=== PATIENT | female | born 1960 | race Caucasian/White ===

== ENCOUNTER → 2021-09-22 15:53 | Outpatient (CLI) | payer OTHER, SELFPAY ==
--- NOTE | ~2021-09-22 | XR_ITS ---
XR_[id number]_CR DATE: 09/22/2021 16:39 INDICATION: Neck pain TECHNIQUE: AP, open-mouth, lateral and swimmer views COMPARISON: None FINDINGS: Anterior plate and screws are noted from the C5-6 interspace to C7. There is fracture of on e of the 2 proximal plate and screws and both lower plate and screws There is approximate 4 mm AP separation between the lower aspect of the plate and the lower 2 screws. There is straightening of the cervical spine. There is moderate degenerative disc disease at C4-5. IMPRESSION: Fracture of L3 of 4 screws at lower cervical anterior plate Straightening of the cervical spine Moderate degenerative disc disease at C4-5 No bone fracture or dislocation is evident Reviewed, dictated and finalized at [facility]. Reviewed, dictated and finalized at [facility].
== END ==
PROVIDERS: PCP Family Medicine; Visit Provider Family Medicine
DX: M50.321 Other cervical disc degeneration at C4-C5 level (principal); S32.039A Unspecified fracture of third lumbar vertebra, initial encounter for closed fracture; X58.XXXA Exposure to other specified factors, initial encounter
CPT/HCPCS: 72040

== ENCOUNTER 2022-08-25 09:16 | Outpatient (CLI) | payer OTHER, SELFPAY ==
[2022-08-28 07:49] LABS: Kit Draw Collected
== END 2022-08-25 09:17 | disposition home or self-care (01) ==
LOC: ANHGOSHLAB 09:17
PROVIDERS: PCP Family Medicine; Visit Provider Nurse Practitioner
DX: E55.9 Vitamin D deficiency, unspecified (principal); E78.5 Hyperlipidemia, unspecified; I10 Essential (primary) hypertension
CPT/HCPCS: 36415

== ENCOUNTER 2023-06-06 12:29 | Emergency (ER) | payer OTHER, SELFPAY ==
--- NOTE | ~2023-06-06 | XR_ITS ---
EXAMINATION: XR knee RT min 4V, XR knee LT min 4V DATE: 06/06/2023 13:23 INDICATION: Bilateral anterior knee pain post fall onto both knees. TECHNIQUE: 1. Anteroposterior, 2 oblique, sunrise and crosstable lateral views of the left knee were obtained. 2. Anteroposterior, 2 oblique, sunrise and crosstable lateral views of the right knee were obtained COMPARISON: None. FINDINGS: There is bilateral genu valgus with severe joint space narrowing in the lateral compartments of both knees. No fracture. There is additional mild osteoarthritis with moderate size marginal osteophytes i n the medial and patellofemoral compartments of both knees. No joint effusion/layering lipohemarthros is. IMPRESSION: 1. Severe medial compartment predominant tricompartmental osteoarthritis of both knees. No knee joint effusions or acute osseous abnormality. Reviewed, dictated and finalized at [facility]. NG TACKER IMPRESSION: 1. Severe medial compartment predominant tricompartmental osteoarthritis of bot h knees. No knee joint effusions or acute osseous abnormality.
--- NOTE | ~2023-06-06 | XR_ITS ---
XR cervical spine 4-5V DATE: 06/06/2023 13:22 INDICATION: Fall 4 months, with the neck and back. Neck pain. TECHNIQUE: AP, lateral, open-mouth, swimmer views COMPARISON: 09/22/2021 cervical spine FINDINGS: Again noted is fracture of at least 3 of the 4 screws at the anterior C5-7 surgical fusion, unchanged since 09/22/2021. C1 and C2 are normally aligned and the odontoid process is intact. No cervical spine fracture or dislocation or prevertebral soft tissue swelling is evident. There is m ild to moderate degenerative disc disease in the upper and mid cervical spine. Bilateral elongated C7 transverse processes. IMPRESSION: Failed hardware at anterior surgical fusion at C5-C7 No interval fracture or dislocation since 09/22/2021 Reviewed, dictated and finalized at location [facility]. TENNIS BALL COVERER
[2023-06-06 12:40] VITALS: BP 155/69; PULSE 81; RESP 18; TEMP 36.6; O2SAT 100
[2023-06-06 12:44] VITALS: BP 155/69; PULSE 81; RESP 18; TEMP 36.6; O2SAT 100
--- NOTE | 2023-06-06 12:59 | ED.FALL ---
HPI - Fall General Chief Complaint: Fall Stated Complaint: Injuries from fall/shoulder& knees Source: patient Mode of arrival: ambulatory Limitations: no limitations History of Present Illness HPI Narrative: 63-year-old female history cervical spine fusion, hypertension, and bilateral knee osteoarthritis presented for complaints pain in several locations after fall at work today. She states she tripped over a mat under a desk chair, causing her to fall onto her knees. She states she also struck the left chest on the desk causing her to jerk her head backwards. Endorses neck pain, rates 8/10 and is worse on left. She states this is new pain because she tends to have right-sided neck pain. Also reports bilateral knee pain which she rates 9/10, left is worse than the right. Reports decreased ROM to bilateral knees. Left foot/ankle pain rates 4/10. Left shoulder pain rates 5/10. She denies taking any additional pain medicine she takes Celebrex daily. Endorses a history of left meniscus repair and left ankle surgery. Denies any deformities, numbness, tingling, weakness of the extremities. Related Data Home Medications Medication Instructions Recorded Confirmed cetirizine 10 mg tablet (Zyrtec) 10 mg PO DAILY 04/21/19 08/20/22 celecoxib 200 mg capsule 200 mg PO BID 09/15/21 08/20/22 duloxetine 60 mg capsule,delayed 60 mg PO DAILY 08/18/22 08/20/22 release methocarbamol 750 mg tablet 750 mg PO DAILY 08/18/22 08/20/22 Allergies Allergy/AdvReac Type Severity Reaction Status Date / Time amoxicillin Allergy Unknown Unknown Verified 08/18/22 14:25 codeine Allergy Unknown Unknown Verified 08/18/22 14:25 Penicillins Allergy Unknown Unknown Verified 08/18/22 14:25 Sulfa (Sulfonamide Allergy Unknown Unknown Verified 08/18/22 14:25 Antibiotics) tetanus and diphtheria Allergy Unknown Unknown Verified 08/18/22 14:25 toxoids vancomycin Allergy Unknown Unknown Verified 08/18/22 14:25 tramadol Allergy Itching Verified 08/18/22 14:25 potassium AdvReac unkknown Verified 08/18/22 14:25 Review of Systems Review of Systems: CONSTITUTIONAL: Denies body aches, fever, chills EYES: Denies visual changes ENT: Denies rhinorrhea, congestion CARDIOVASCULAR: Denies chest pain, palpitations, or edema. RESPIRATORY: Denies cough or dyspnea. SKIN: Denies rash, itching, or wounds. MUSCULOSKELETAL: Denies back pain, see HPI NEUROLOGIC: Denies headache, numbness, tingling, or weakness. All systems reviewed & are unremarkable except as noted in HPI and below PMFSH Past Medical History Medical History Back pain with history of spinal surgery Essential (primary) hypertension (~1997) Hyperlipidemia, unspecified (~1997) Umbilical hernia Surgical History Surgical History H/O lateral meniscus repair of left knee (~2006) Status post cervical spinal fusion (~2003) Family History Family History Sibling Family history of thyroid disease Hypertension Grandparent Diabetes mellitus Hypertension Mother Hypertension Family history of lung cancer Father Rheumatic aortic disease Social History Social History Smoking status: Never smoker Second hand tobacco smoke exposure: No Alcohol intake: current Alcohol use details: Pt drinks wine/mixed drinks. She states that she drinks occasionally/socially Substance use: never Lack of Transportation: No Lack of Food: Never True Current Housing: I Have Housing Concerned About Future Housing: No Difficulty Paying Gas/Electric Bills: No Difficulty Paying for Meds: No Currently Unemployed: No Education: Associate Degree Difficulty w/ Childcare or Family Care: No Occupation/Education: occupation Additional occupation/education comments: V
== END 2023-06-06 14:38 | disposition home or self-care (01) ==
PROVIDERS: Emergency Provider Nurse Practitioner Family; PCP Family Medicine
DX: M25.562 Pain in left knee (principal); M25.561 Pain in right knee; M25.572 Pain in left ankle and joints of left foot; M54.2 Cervicalgia; I10 Essential (primary) hypertension; E78.5 Hyperlipidemia, unspecified
CPT/HCPCS: 72050; 73564; 99214; G0463

== ENCOUNTER 2023-07-04 13:39 | Outpatient (CLI) | payer OTHER, SELFPAY ==
[2023-07-04 18:29] LABS: Basophils Percent Auto 0.5 % (0.2-1.2); Eosinophils Absolute Auto 0.2 K/mm3 (0-0.3); Eosinophils Percent Auto 2.6 % (0-4.4); Hematocrit 42.5 % (37.0-47.0); Hemoglobin 14.2 g/dL (12.0-15.0); Immature Granulocyte Absolute 0.04 K/mm3 (0.00-0.031); Immature Granulocyte Percent A 0.6 % (0-0.5); Lymphocytes Absolute Auto 2.27 K/mm3 (0.9-3.2); Lymphocytes Percent Auto 34.4 % (18.3-44.2); Mean Corpuscular HGB Conc 33.4 g/dl (32-36); Mean Corpuscular Hemoglobin 31.8 pg (26-34); Mean Corpuscular Volume 95.3 fl (80-100); Mean Platelet Volume 10.4 fl (7.4-10.4); Monocytes Absolute Auto 0.5 K/mm3 (0.1-0.6); Monocytes Percent Auto 7.1 % (2.6-8.5); Neutrophils Absolute Auto 3.6 K/mm3 (1.3-6.7); Neutrophils Percent Auto 54.8 % (45.5-73.1); Platelet Count Result 264 k/mm3 (150-375); Red Blood Count 4.46 M/mm3 (4.2-5.4); Red Cell Distribution Width 12.5 % (11.5-14.5); White Blood Count 6.6 K/mm3 (4.5-10.0)
[2023-07-04 18:32] LABS: Alanine Aminotransferase 23 U/L (6-35); Albumin Level 3.9 g/dL (3.5-5.1); Alkaline Phosphatase 81 U/L (38-126); Anion Gap 2 mmol/L (8-16); Aspartate Amino Transferase 51 U/L (14-36); Bilirubin,Total 1.5 mg/dL (0.2-1.3); Blood Urea Nitrogen 12 mg/dL (7-17); Calcium 9.7 mg/dL (8.4-10.2); Carbon Dioxide 31 mmol/L (22-30); Chloride 104 mmol/L (98-107); Cholesterol 191 mg/dL (0-200); Estimated Glomerular Filt Rate > 60; Glucose 85 mg/dL (65-110); HDL Direct 56 mg/dL; Sodium 137 mmol/L (137-145); Triglycerides 116 mg/dL (<150)
[2023-07-04 18:45] LABS: LDL Cholesterol Direct 98 mg/dL
[2023-07-04 19:28] LABS: Vitamin D 25 Hydroxy 49.6 ng/mL
== END 2023-07-04 13:40 | disposition home or self-care (01) ==
LOC: ANHGOSHLAB 13:41
PROVIDERS: PCP Family Medicine; Visit Provider Nurse Practitioner Family
DX: R73.03 Prediabetes (principal); Z00.00 Encounter for general adult medical examination without abnormal findings; E78.5 Hyperlipidemia, unspecified; Z13.29 Encounter for screening for other suspected endocrine disorder; E55.9 Vitamin D deficiency, unspecified
CPT/HCPCS: 36415; 80053; 80061; 82306; 83036; 84443; 85025

== ENCOUNTER 2024-06-24 12:39 | Outpatient (CLI) | payer OTHER, SELFPAY ==
--- OUTSIDE RECORDS SUMMARY | 2024-06-24 12:44 | XMS_ITS | Patient Health Summary ---
Author Organization [facility] Address [address] [place] [address] Care Team Providers Care C Architect Name Role Phone Keturah Norwood MD Primary Care Provider Fernando Scherer DO Unavailable [phone] Ron Escamilla MD Unavailable [phone] Note from [facility],non-owned Affiliates and Associated Physician Practices is amultiple site organization consisting of ambulatory clinics and hospital sitesin [place], [place], [place] and [place]. This disclosure is being madepursuant to the Care Everywhere program and may not contain all information available regarding this patient. Last updated 18.[facility] Allergies * Adhesive Sensitivity(Skin Reactions) * Erythromycin(Itching) * Hydrocodone(Nausea and/or Vomiting) -Low Criticality * Penicillins(Unknown) * Sulfa Drugs(Urticaria) -Medium Criticality * Tramadol(Itching) -Low Criticality * Vancomycin(Itching) Medications * Be aware that medications may not be up to date on this document. Alwaysverify current medications with the patient. * cetirizine (ZyrTEC) 10 MG tablet Take 1 (one) tablet by mouth once daily * atorvastatin (Lipitor) 40 MG tablet(Started 06/29/2023) Take 1 (one) tablet by mouth once daily * DULoxetine (Cymbalta) 60 MG capsule(Started 06/21/2023) Take 1 (one) capsule by mouth once daily * methocarbamol (Robaxin) 750 MG tablet(Started 02/09/2023) Take 1 (one) tablet by mouth 3 times daily 5 refills remaining * Cholecalciferol (Vitamin D) 50 MCG (1999 UT) capsule Take 1 (one) capsule by mouth once daily * Povidone, PF, (iVIZIA Dry Eyes) 0.5 % SOLN by Ophthalmic route as needed Dry eyes * multivitamin daily tablet Take 1 (one) tablet by mouth daily with food * aspirin EC (Ecotrin) 81 MG tablet(Started 08/02/2023) Take 1 (one) tablet by mouth 2 times daily for 42 days Take for blood clot prevention for 6 weeks * acetaminophen (Tylenol) 500 MG capsule(Started 01/03/2024) Take 2 (two) capsules by mouth 3 times daily Take 3x/day for 10 days, then as needed for pain * lisinopril (Prinivil; Zestril) 10 MG tablet(Started 01/04/2024) Take 1 (one) tablet by mouth once daily Take only if BP is greater than 125/90 * aspirin EC (Ecotrin) 81 MG tablet(Started 01/04/2024) TAKE 1 (ONE) TABLET BY MOUTH 2 TIMES DAILY FOR 42 DAYS. TAKE FOR BLOOD CLOT PREVENTION FOR 6 WEEKS * omeprazole (PriLOSEC) 20 MG capsule(Started 01/04/2024) TAKE 1 (ONE) CAPSULE BY MOUTH ONCE DAILY FOR 42 DAYS * oxyCODONE, immediate release, (Roxicodone) 10 MG tablet(Started 02/14/2024) Take 0.5 (one-half) tablet to 1 (one) tablet by mouth every 4 hours as needed for Pain (pain) * celecoxib (CeleBREX) 200 MG capsule(Started 06/10/2024) Take 1 capsule by mouth twice daily Ended Medications* celecoxib (CeleBREX) 200 MG capsule(Started 05/08/2024) (Discontinued) Take 1 capsule by mouth twice daily Active Problems Problem Noted Date Diagnosed Date Primary osteoarthritis of both knees 03/17/2020 Essential hypertension 01/20/2020 Mixed hyperlipidemia 01/20/2020 Social History Tobacco Use Types Packs/Day Years Used Date Smoking Tobacco: Never Smokeless Tobacco: Never Tobacco Cessation:Counseling Given: Not Answered Alcohol Use Standard Drinks/Week Comments Yes 0 (1 standard drink = 0.6 oz pur e alcohol) rarely OASIS D0700: Social Isolation Answer Da te Recorded Frequency of experiencing loneliness or isolatio n Never 08/21/2023 OASIS A1250: Transportation Answer Date Recorded Lack of Transportation (Medical) No 08/21/2023 Lack of Transportation (Non-Medical) No 08/21/2023 Patient Unable or Declines to Respond No 08/21/2023 OASIS B1300: Health Literacy Answer Kaiden e Recorded Frequency of needing help to read materials from doctor or pharmacy Never 08/21/2023 AUDIT-C Answer Date Recorded Q1: How often do you have a drink containing alc ohol? Monthly or less 08/02/2023 Q2: How many drinks containi ng alcohol do you have on a typical day when you are drinking? 1 or 2 08/02/2023 Q3: How often do you have si x or more drinks on one occasion? Never 08/02/2023 PHQ-2 Answer Date Recorded Patient Health Questionnaire-2 Score 0 05/08/2024 Hunger Vital Sign Answer Date Recorded Within the past 12 months, y ou worried that your food would run out before you got the money to buy more. Never true 08/02/19 24 Within the past 12 months, t he food you bought just didn't last and you didn't have money to get more. Never true 08/02/2023 Sex and Gender Information Value Date Recorded Sex Assigned at Not on file Gender Identity Not on file Sexual Orientation Not on file Last Filed Vital Signs Vital Sign Reading Time Taken Comments Blood Pressure 116/67 01/04/2024 4:23 PM CDT Pulse 72 01/04/2024 4:23 PM CDT Temperature 36.8 ??C (98.2 ??F) 01/04/2024 8:28 AM CD T Respiratory Rate 18 01/04/2024 4:23 PM CDT Oxygen Saturation 98% 01/04/2024 4:23 PM CDT Inhaled Oxygen Concentration - - Weight 124.7 kg (275 lb) 01/03/2024 6:41 AM CDT Height 160 cm (5' 3 ) 01/03/2024 6:41 AM CDT Body Mass Index 48.71 01/03/2024 6:41 AM CDT Medical Devices Implanted Type Area Sound Installation Worker Device Identifier Shelf Expiration Date Model / Serial / Lot Cmnt Bone Plc R 40gm Grn Implanted:Qty: 1 on 08/02/2023 by Alonso Pizano MD at [facility] Left: Knee [employer] 12/18/2025 [id number] / / [id number] Tray Tib 75mm Kn Cocr I Beam Implanted:Qty: 1 on 08/02/2023 by Alonso Pizano MD at [facility] Left: Knee [employer] 04/30/2033 [id number] / / [id number] Cmpnt Fem Kn Lt Cr Cmnt Prm Vngrd Intlk Implanted:Qty: 1 on 08/02/2023 by Alonso Pizano MD at [facility] Left: Knee [employer] 06/14/2032 [id number] / / [id number] Cmpnt Ptlr Std 28mm 3 Pg Kn Ser A Implanted:Qty: 1 on 08/02/2023 by Alonso Pizano MD at [facility] Left: Knee [employer] 01/12/2028 [id number] / / [id number] Brng 40lep24nl Vngrd Arcm Kn Ant Stab Implanted:Qty: 1 on 08/02/2023 by Alonso Pizano MD at [facility] Left: Knee [employer] 08/18/2027 [id number] / / [id number] Laureano Brng [id number] Vngrd Arcm Kn Ant Stab Implanted:Qty: 1 on 01/03/2024 by Alonso Pizano MD at [facility] Right: Knee [employer] 07/03/2027 [id number] [facility] ONLY / / [id number] Cmnt Bone Plc R 40gm Grn Implanted:Qty: 1 on 01/03/2024 by Alonso Pizano MD at [facility] Right: Knee [employer] 05/20/2026 [id number] / / [id number] Cmpnt Ptlr Std 28mm 3 Pg Kn Ser A Implanted:Qty: 1 on 01/03/2024 by Alonso Pizano MD at [facility] Right: Knee [employer] 08/14/2028 [id number] / / [id number] Tray Tib 75mm Kn Cocr I Beam Implanted:Qty: 1 on 01/03/2024 by Alonso Pizano MD at [facility] Right: Knee [employer] [id number] / / [id number] Cmpnt Fem Kn Rt Cr Cmnt Prm Vngrd Intlk Implanted:Qty: 1 on 01/03/2024 by Alonso Pizano MD at [facility] Right: Knee [employer] 07/29/2033 [id number] / / [id number] Procedures * XR KNEE RIGHT 3VW(Performed 02/14/2024) Performed for Aftercare following right knee joint replacement surgery * NEURAXIAL BLOCK(Performed 01/03/2024) * OR TOTAL KNEE REPLACEMENT(Performed 01/03/2024) * EKG 12-LEAD(Performed 11/30/2023) Performed for Preop testing * COMPREHENSIVE METABOLIC PANEL(Performed 11/30/2023) Performed for Preop testing * CBC W AUTO DIFFERENTIAL(Performed 11/30/2023) Performed for Preop testing * XR KNEE LEFT 3VW(Performed 09/13/2023) Performed for Aftercare following left knee joint replacement surgery * NEURAXIAL BLOCK(Performed 08/02/2023) * OR TOTAL KNEE REPLACEMENT(Performed 08/02/2023) * ECHO COMPLETE W CONTRAST(Performed 07/13/2023) Performed for Preop cardiovascular exam, Essential hypertension, Mixed hyperlipidemia, Primary osteoarthritis of both knees * COMPREHENSIVE METABOLIC PANEL(Performed 07/04/2023) Performed for Preop examination * CBC W AUTO DIFFERENTIAL(Performed 07/04/2023) Performed for Preop examination * EKG 12-LEAD(Performed 07/04/2023) Performed for Preop examination * XR KNEE BILAT 3VW(Performed 03/16/2023) Performed for Primary osteoarthritis of both knees * XR KNEE BILAT 3VW(Performed 03/16/2020) Performed for Pain in both knees, unspecified chronicity Results * XR Knee Right 3Vw (02/14/2024 3:01 PM CDT) Narrative [facility] [address] - 02/14/2024 3:01 PM CDT Please see progress note in Epic for results. Alonso Pizano MD DIAGNOSTIC IMAGING O RDERABLES [facility] [address] * Neuraxial Block (01/03/2024 9:14 AM CDT) Narrative Miguel Beasley, VICTOR HUGO-CAPTAIN/AIRLINE PILOT - 01/03/2024 9:14 AM CDT Miguel Beasley, HUMAN CAPITAL ANALYST-CAPTAIN/AIRLINE PILOT ? 01/03/2024 ??9:16 AM Neuraxial Block Note ?? Pre-Procedure: ?? Procedure Name: ??Neuraxial Block Patient Location: ??OR Indications: ??surgical anesthesia Pre-Anesthetic Checklist: ??Patient identified, IV Checked, Risks and benefits discussed, Surgical consent verified, Monitors and equipment, Site examined, Pre-op evaluation done, Informed consent obtained, Questions answered/anesthesia questions answered and Allergies reviewed Anticoagulation/ Anti-thrombosis status confirmed? ??Yes Supplemental O2: ??room air Monitors: ??BP and continuous pluse ox Patient Condition: ??sedated, meaningful contact maintained throughout procedure Patient Sedated? ??Nursing sedation administration ? Sedation Type: ??mild ? Sedation Agents (manual): ??versed ?? fentanyl mL Procedure: ?? Block Type: ??Spinal Prep: ??Betadine Sterile Field: ??mask, cap/hat, sterile established and sterile gloves Approach: ??midline Skin was localized? ??Nursing documentation on [facility] Skin localized with: ??Lidocaine 1% and 1 mL Spinal Block: ?? Needle Type: ??spinal needle Needle Gauge: ??22 Needle Length: ??127 mm Placement Site: ??L3-4 Number of Attempts: ??1 CSF: ??free flow, aspiration before injection Local anesthetics used? ??Nursing documentation on the [facility] Spinal Local Anesthetic: ? Bupivacaine: ??0.75% in dextrose 2 ??mL Degree of difficulty: ??none Procedure Tolerance: ??tolerated well ?? performed while the patient was sedated Sensory Level: ??lower level Motor Blockade: ??Yes Position post procedure: ??supine Vital Signs: ??Vital signs monitored and stable throughout. ??See anesthesia record for details. Start Time: ??01/03/2024 8:30 AM End Time: ??01/03/2024 8:41 AM Total Time: ??11 Staff: ?? Anesthesia Provider: ??Miguel Beasley, HUMAN CAPITAL ANALYST-CAPTAIN/AIRLINE PILOT ?? - ?? performed the procedure Provider #1: ??Alannah Zee Rashida Cervantes MD GENERAL ANESTHESI A ORDERABLES * EKG 12-LEAD (11/30/2023 9:19 AM CDT) Only the most recent of2 resultswithin the time period is included. Ventricular Rate 62 BPM [facility] Atrial Rate 62 BPM [facility] P-R Interval 178 ms [facility] QRS Duration ms 72 ms [facility] Q-T Interval ms 382 ms [facility] QTC Calculation (Bezet) 387 ms [facility] Calculated P Mission 41 degrees [facility] Calculated R Mission 3 degrees [facility] Calculated T Mission 27 degrees [facility] Interpretation EKG Normal sinus rhythm Normal ECG When compared with ECG of 04-JUL-2023 08:39, No significant change was found Confirmed by JOLENE EDMOND, DANISH CARPENTER ([id number]) on 11/30/2023 12:11:46 PM [facility] 11/30/2023 9:19 AM CDT 11/30/2023 12:11 PM CDT Socorro Ricci DO ECG ORDERABLES [facility] * CBC W AUTO DIFFERENTIAL (11/30/2023 8:59 AM CDT) Only the most recent of2 resultswithin the time period is included. WBC 4.5 4.0 - 10.7 x10E9/L 11/30/2023 9:11 AM CDT [facility] RBC Count 4.68 3.90 - 5.20 x10E12/L 11/30/2023 9:11 AM CDT [facility] Hemoglobin 14.6 11.9 - 15.8 g/dL 11/30/2023 9:11 AM CDT [facility] Hematocrit 43.0 34.8 - 46.1 % 11/30/2023 9:11 AM CDT [facility] MCV 91.9 80.0 - 98.0 fL 11/30/2023 9:11 AM CDT [facility] MCH 31.2 26.7 - 33.6 pg 11/30/2023 9:11 AM CDT [facility] MCHC 34.0 31.7 - 36.3 g/dL 11/30/2023 9:11 AM CDT [facility] RDW-CV 12.9 11.3 - 14.8 % 11/30/2023 9:11 AM CDT [facility] Platelet Count 262 150 - 420 x10E9/L 11/30/2023 9:11 AM CDT [facility] MPV 9.3 7.8 - 11.4 fL 11/30/2023 9:11 AM CDT [facility] Neutrophil % 51.1 41.0 - 74.0 % 11/30/2023 9:11 AM CDT [facility] Lymphocyte % 36.0 17.0 - 47.0 % 11/30/2023 9:11 AM CDT [facility] Monocyte % 8.7 3.0 - 11.0 % 11/30/2023 9:11 AM CDT [facility] Eosinophil % 3.1 0.0 - 7.0 % 11/30/2023 9:11 AM CDT [facility] Basophil % 0.7 0.0 - 1.6 % 11/30/2023 9:11 AM CDT [facility] Immature Granulocytes % 0.4 0.0 - 1.0 % 11/30/2023 9:11 AM CDT [facility] Neutrophil Absolute 2.28 1.60 - 7.50 x10E9/L 11/30/2023 9:11 AM CDT [facility] Lymphocyte Absolute 1.61 1.00 - 4.40 x10E9/L 11/30/2023 9:11 AM CDT [facility] Monocyte Absolute 0.39 0.15 - 1.00 x10E9/L 11/30/2023 9:11 AM CDT [facility] Eosinophil Absolute 0.14 0.00 - 0.60 x10E9/L 11/30/2023 9:11 AM CDT [facility] Basophil Absolute 0.03 0.00 - 0.13 x10E9/L 11/30/2023 9:11 AM CDT [facility] Blood BLOOD SPECIMEN / Unknown Venipuncture / Unknown 11/30/2023 8:59 AM CDT 11/30/2023 9:06 AM CDT Socorro Ricci DO LAB - HEMATOLOGY ORD ERABLES [facility] [address] [place] [address] * (ABNORMAL) COMPREHENSIVE METABOLIC PANEL (11/30/2023 8:59 AM CDT) Only the most recent of2 resultswithin the time period is included. Pathologist [facility] Glucose 101 70 - 105 mg/dL 11/30/2023 9:33 AM CDT [facility] Sodium 140 136 - 145 mmol/L 11/30/2023 9:33 AM CDT [facility] Potassium 5.1 3.5 - 5.1 mmol/L 11/30/2023 9:33 AM CDT [facility] Chloride 104 98 - 107 mmol/L 11/30/2023 9:33 AM CDT [facility] CO2 30(H) 22 - 29 mmol/L 11/30/2023 9:33 AM CDT [facility] Calcium 10.2 8.4 - 10.4 mg/dL 11/30/2023 9:33 AM CDT [facility] Anion Gap 6 6 - 16 mmol/L 11/30/2023 9:33 AM CDT [facility] BUN 19 7 - 26 mg/dL 11/30/2023 9:33 AM CDT [facility] Creatinine 0.89 0.57 - 1.11 mg/dL 11/30/2023 9:33 AM CDT [facility] Alkaline Phosphatase 88 40 - 150 U/L 11/30/2023 9:33 AM CDT [facility] ALT 17 0 - 55 U/L 11/30/2023 9:33 AM CDT [facility] AST 26 5 - 34 U/L 11/30/2023 9:33 AM CDT [facility] Protein Total 7.0 6.4 - 8.3 gm/dL 11/30/2023 9:33 AM CDT [facility] Albumin 3.8 3.4 - 5.0 gm/dL 11/30/2023 9:33 AM CDT [facility] Bilirubin Total 2.5(H) 0.2 - 1.2 mg/dL 11/30/2023 9:33 AM CDT [facility] eGFR by CKD-EPI 73(L) >=90 mL/min/1.7 3 m2 11/30/2023 9:33 AM CDT [facility] Blood BLOOD SPECIMEN / Unknown Venipuncture / Unknown 11/30/2023 8:59 AM CDT 11/30/2023 9:06 AM CDT Socorro Ricci DO LAB - CHEMISTRY TIESHA NUNES Performing Organization Address [facility]/ZIP Co de Phone Number [facility] [address] [place] [address] * XR KNEE LEFT 3VW (09/13/2023 4:19 PM CDT) Narrative [facility] [address] - 09/13/2023 4:19 PM CDT Please see progress note in Epic for results. Alonso Pizano MD DIAGNOSTIC IMAGING O RDERABLES Performing Organization Address [facility] Co de Phone Number [facility] [address] * Neuraxial Block (08/02/2023 10:08 AM CDT) Narrative Miguel Beasley APRN-CAPTAIN/AIRLINE PILOT - 08/02/2023 10:08 AM CDT Miguel Beasley APRN-CRNA ? 08/02/2023 10:09 AM Neuraxial Block Note ?? Pre-Procedure: ?? Procedure Name: ??Neuraxial Block Patient Location: ??OR Indications: ??surgical anesthesia Pre-Anesthetic Checklist: ??Patient identified, IV Checked, Risks and benefits discussed, Surgical consent verified, Monitors and equipment, Site examined, Pre-op evaluation done, Informed consent obtained, Questions answered/anesthesia questions answered and Allergies reviewed Anticoagulation/ Anti-thrombosis status confirmed? ??Yes Supplemental O2: ??room air Monitors: ??BP and continuous pluse ox Patient Condition: ??sedated, meaningful contact maintained throughout procedure Patient Sedated? ??Nursing sedation administration ? Sedation Type: ??mild ? Sedation Agents (manual): ??versed ?? fentanyl mL Procedure: ?? Block Type: ??Spinal Prep: ??Betadine Sterile Field: ??mask, cap/hat, sterile established and sterile gloves Approach: ??midline Skin was localized? ??Nursing documentation on [facility] Skin localized with: ??Lidocaine 1% and 1 mL Spinal Block: ?? Needle Type: ??spinal needle Needle Gauge: ??22 Needle Length: ??127 mm Placement Site: ??L3-4 Number of Attempts: ??2 CSF: ??free flow, aspiration before injection Local anesthetics used? ??Nursing documentation on the MAR Spinal Local Anesthetic: ? Bupivacaine: ??0.75% in dextrose 2 ??mL Degree of difficulty: ??moderate Procedure Tolerance: ??tolerated well ?? performed while the patient was sedated Sensory Level: ??lower level Motor Blockade: ??Yes Position post procedure: ??supine Vital Signs: ??Vital signs monitored and stable throughout. ??See anesthesia record for details. Start Time: ??08/02/2023 9:40 AM End Time: ??08/02/2023 9:50 AM Total Time: ??10 Staff: ?? Anesthesia Provider: ??Miguel Beasley, VICTOR HUGO-CAPTAIN/AIRLINE PILOT ?? - ?? performed the procedure Tristen Rubin MD GENERAL ANESTHESIA O RDERABLES * ECHO COMPLETE W CONTRAST (07/13/2023 11:16 AM SHOWER SCREEN INSTALLER) BSA 2.2067502 [id number] m2 SSM CV FUJI PACS LVOT stroke vol 79.06 mL SSM CV FUJI PACS LVOT stroke vol index 33.72 mL/m2 SSM CV FUJI PACS LVOT diam 1.8 cm SSM CV FUJ I PACS LVOT area 2.55 cm2 SSM CV FUJ I PACS MV E pk jaci 96.099 cm/s SSM CV F UJI PACS MV avg E/e' ratio 9.74 SS M CV FUJI PACS MV A pk jaci 101.114 cm/s SSM CV F UJI PACS MV E A ratio 0.95 SSM CV FUJI PACS MV E' lateral jaci 12.21 cm/s SS M CV FUJI PACS MV DT 240 ms SSM CV FUJ I PACS MV E' septal jaci 8.281 cm/s SSM CV FUJI PACS MV E/e' septal 11.605 SSM C V FUJI PACS MV E/e' lateral 7.87 SSM CV FUJI PACS TR pk jaci 257.5 cm/s SSM CV FUJ I PACS LVOT pk jaci 1.48 m/s SSM CV F UJI PACS LVOT mn jaci 0.97 m/s SSM CV F UJI PACS LVOT mn grad 4.2 mmHg SSM CV FUJI PACS LVOT Cardiac Output 5.565 l/min SSM CV FUJI PACS LVOT Cardiac Index 2.37 l/min/m2 SSM CV FUJI PACS LA vol BP A-L 75.214 mL SSM CV FUJI PACS TV S' jaci 17.156 cm/s SSM CV FUJ I PACS TAPSE 2.726 1.7 cm SSM CV FUJ I PACS AV mn grad 10 mmHg SSM CV FU JI PACS AV pk grad 19 mmHg SSM CV FU JI PACS AV mn jaci 1.48 m/s SSM CV FUJ I PACS AV pk jaci 2.16 m/s SSM CV FUJ I PACS AV VTI 47.286 cm SSM CV FUJ I PACS LVOT pk grad 8.757 mmHg SSM CV FUJI PACS LVOT VTI 30.976 cm SSM CV FUJ I PACS AV area cont VTI 1.7 cm2 SSM CV FUJI PACS AV area pk jaci 1.7 cm2 SSM C V FUJI PACS AV Doppler jaci index pk jaci 0.684 SSM CV FUJI PACS Dimensionless Index 0.655 SSM CV FUJI PACS MV decel slope 399.987 cm/s2 SSM C V FUJI PACS sPAP 29.5 mmHg SSM CV FUJ I PACS RVSP 29.5 mmHg SSM CV FUJ I PACS RAP 3.0 mmHg SSM CV FUJ I PACS TR pk grad 27 mmHg SSM CV FU JI PACS PV pk jaci 112.671 cm/s SSM CV FUJ I PACS PV pk grad 5 mmHg SSM CV FU JI PACS IVC size 1.5 cm SSM CV FUJ I PACS LA ESV A4C MOD Index 32 ml/m2 SSM CV FUJI PACS LA ESV A2C MOD Index 28 ml/m2 SSM CV FUJI PACS Anatomical Region Laterality Modality Ultrasound Narrative 07/14/2023 10:15 AM SHOWER SCREEN INSTALLER ?Left??Ventricle: Left ventricle size is normal. Normal wall thickness. Normal systolic function with a visually estimated EF of 55 - 60%. Normal wall motion. Grade I diastolic dysfunction with normal left atrial pressure. Left Ventricle Left ventricle size is normal. Normal wall thickness. Normal systolic function with a visually estimated EF of 55 - 60%. Normal wall motion. Grade I diastolic dysfunction with normal left atrial pressure. Right Ventricle Right ventricle size is normal. Normal systolic function. Left Atrium Left atrium size is normal. Right Atrium Right atrium size is normal. IVC/SVC IVC diameter is less than or equal to 21 mm and decreases greater than 50% during inspiration; therefore the estimated right atrial pressure is normal (~3 mmHg). Mitral Valve Valve structure is normal. No restricted motion. Trace regurgitation. No stenosis. Tricuspid Valve Valve structure is normal. No restricted motion. Trace regurgitation. No stenosis. Aortic Valve Valve structure is trileaflet. No restricted motion. No regurgitation. No stenosis. Pulmonic Valve Valve structure is normal. No restricted motion. No regurgitation. No stenosis. Ascending Aorta Normal sized sinus of Valsalva (aortic root) and ascending aorta. Pericardium No pericardial effusion. Study Details Study quality was adequate. A complete 2D, color Doppler, spectral Doppler and M-mode echocardiogram was performed. The apical, parasternal, subcostal and suprasternal views were obtained. Definity ultrasound enhancing agent used. Procedure Note Ron Escamilla MD - 07/14/2023 ? ? Left??Ventricle: Left ventricle size is normal. Normal wall thickness.Normal systolic function with a visually estimated EF of 55 - 60%. Normalwall motion. Grade I diastolic dysfunction with normal left atrialpressure. Ron Escamilla MD ECHO CUPID * XR KNEE BILAT 3VW (03/16/2023 12:08 PM CDT) Only the most recent of2 resultswithin the time period is included. Narrative [facility] [address] - 03/16/2023 12:08 PM CDT Please see progress note in Epic for results. Alonso Pizano MD DIAGNOSTIC IMAGING O RDERABLES [facility] [address] Care Teams C Architect Relationship Specialty Start Date End Date Keturah Norwood MD [address] [place] [address] PCP - General Family Medicine 07/04/23 Fernando Scherer DO [address] [place] [address] Cardiovascular Disease 07/04/23 [place] [address] [facility] [place] [address] Par[employer] Plant Sweater Operator Cardiovascular Disease 07/24/23
--- OUTSIDE RECORDS SUMMARY | 2024-06-24 12:44 | XMS_ITS | Referral Summary ---
Author Organization [facility] Address [address] [facility] [place] [address] Care Team Providers Care Federal Law Clerk Name Role Phone Keturah Norwood MD Primary Care Provider Fernando Scherer DO Unavailable [phone] Ron Escamilla MD Unavailable [phone] Source Comments [facility],non-owned Affiliates and Associated Physician Practices is amultiple site organization consisting of ambulatory clinics and hospital sitesin [place], [place], [place] and [place]. This disclosure is being madepursuant to the Care Everywhere program and may not contain all information available regarding this patient. Last updated 18.[facility] Encounters Date Type Department Care Team Description 06/10/2024 Refill [facility] [address] [place] [address], [address] [address] Alonso Pizano MD Refill Request 05/09/2024 9:20 AM RAISE DRILLER Office Visit [facility] [address] [place] [phone] Alonso Pizano MD Presence of right artificial knee joint (Primary Dx) 05/08/[address] [address] Alonso Pizano MD Refill Request from Last 3 Months Allergies Active Allergy Reactions Criticality Noted Date Comments Adhesive Sensitivity Skin Reactions 11/30/2023 EKG leads Erythromycin Itching 04/09/2018 Hydrocodone Nausea and/or Vomiting Low 01/17/2022 Penicillins Unknown 04/09/2018 childhood Sulfa Drugs Urticaria Medium 04/09/2018 Tramadol Itching Low 01/17/2022 Vancomycin Itching 04/09/2018 Medications * Be aware that medications may not be up to date on this document. Alwaysverify current medications with the patient. Medication Sig Dispensed Refills Start Date End Date Status cetirizine (ZyrTEC) 10 MG tablet Take 1 (one) tablet by mouth once daily Active atorvastatin (Lipitor) 40 MG tablet Take 1 (one) tablet by mouth once daily 06/29/2023 Active DULoxetine (Cymbalta) 60 MG capsule Take 1 (one) capsule by mouth once daily 06/21/2023 Active methocarbamol (Robaxin) 750 MG tablet Take 1 (one) tablet by mouth 3 times daily 90 tablet 5 02/09/2023 Active Cholecalciferol (Vitamin D) 50 MCG (1999 UT) capsule Take 1 (one) capsule by mouth once daily Active Povidone, PF, (iVIZIA Dry Eyes) 0.5 % SOLN by Ophthalmic route as needed Dry eyes Active multivitamin daily tablet Take 1 (one) tablet by mouth daily with food Active aspirin EC (Ecotrin) 81 MG tabletIndication s:Post Op DVT prevention Take 1 (one) tablet by mouth 2 times daily for 42 days Take for blood clot prevention for 6 weeks 84 tablet 08/02/2023 Active acetaminophen (Tylenol) 500 MG capsule Take 2 (two) capsules by mouth 3 times daily Take 3x/day for 10 days, then as needed for pain 01/03/2024 Active lisinopril (Prinivil; Zestril) 10 MG tablet Take 1 (one) tablet by mouth once daily Take only if BP is greater than 125/90 01/04/2024 Active aspirin EC (Ecotrin) 81 MG tablet TAKE 1 (ONE) TABLET BY MOUTH 2 TIMES DAILY FOR 42 DAYS. TAKE FOR BLOOD CLOT PREVENTION FOR 6 WEEKS 84 tablet 01/04/2024 5 Active omeprazole (PriLOSEC) 20 MG capsule TAKE 1 (ONE) CAPSULE BY MOUTH ONCE DAILY FOR 42 DAYS 42 capsule 01/04/2024 5 Active oxyCODONE, immediate release, (Roxicodone) 10 MG tabletIndication s:Postoperative pain Take 0.5 (one-half) tablet to 1 (one) tablet by mouth every 4 hours as needed for Pain (pain) 30 tablet 02/14/2024 Active celecoxib (CeleBREX) 200 MG capsule Take 1 capsule by mouth twice daily 60 capsule 06/10/2024 Active celecoxib (CeleBREX) 200 MG capsule Take 1 capsule by mouth twice daily 60 capsule 05/08/2024 5 Discontinued Active Problems Problem Noted Date Diagnosed Date Primary osteoarthritis of both knees 03/17/2020 Essential hypertension 01/20/2020 Overview (03/17/2020): Last Assessment & Plan: Continue present medical care and treatment Mixed hyperlipidemia 01/20/2020 Overview (03/17/2020): Last Assessment & Plan: Continue present medical care and treatment Social History Tobacco Use Types Packs/Day Years [...] Mass Index 48.71 01/03/2024 6:41 AM CDT Functional Status Functional Status Response Date of Assess ment Is person deaf or have serious hearing difficult y? No 08/02/2023 Is person blind or have serious difficulty seein g? No 08/02/2023 Does person have serious dif ficulty walking/climbing stairs? Yes 08/02/2023 Does person have difficulty dressing/bathing? Ye s 08/02/2023 Does person have difficulty doing errands alone? Yes 08/02/2023 Cognitive Status Response Date of Assessm ent Does person have difficulty concentrating/remembering/making decisions? No 08/02/2023 Plan of Treatment Upcoming Encounters Date Type Department Care Team (Late st Contact Info) Description 11/28/2024 11:00 AM CDT Office Visit [facility] [address] [place] [address] [address] [place] [address] Ron Escamilla MD [address] [place] [phone] Medical Devices Implanted Type Area Well Digger Device Identifier Shelf Expiration Date Model / Serial / Lot Cmnt Bone Plc R 40gm Grn Implanted:Qty: 1 on 08/02/2023 by Alonso Pizano MD at [facility] Left: Knee [employer] 12/18/2025 [id number] / / [id number] Tray Tib 75mm Kn Cocr I Beam Implanted:Qty: 1 on 08/02/2023 by Alonso Pizano MD at [facility] Left: Knee [employer] 04/30/2033 [id number] / / [id number] Cmpnt Fem Kn Lt Cr Cmnt Prm Vngrd Intlk Implanted:Qty: 1 on 08/02/2023 by Alonso Pizano MD at [facility] Left: Knee [employer] 06/14/2032 [id number] / / [id number] Cmpnt Ptlr Std 28mm 3 Pg Kn Ser A Implanted:Qty: 1 on 08/02/2023 by Alonso Pizano MD at [facility] Left: Knee [employer] 01/12/2028 [id number] / / [id number] Brng [id number] Vngrd Arcm Kn Ant Stab Implanted:Qty: 1 on 08/02/2023 by Alonso Pizano MD at [facility] Left: Knee [employer] 08/18/2027 [id number] / / [id number] Laureano Brng [id number] Vngrd Arcm Kn Ant Stab Implanted:Qty: 1 on 01/03/2024 by Alonso Pizano MD at [facility] Right: Knee [employer] 07/03/2027 [id number] [facility] / / [id number] Cmnt Bone Plc R 40gm Grn Implanted:Qty: 1 on 01/03/2024 by Alonso Pizano MD at [facility] Right: Knee [employer] 05/20/2026 [id number] / / [id number] Cmpnt Ptlr Std 28mm 3 Pg Kn Ser A Implanted:Qty: 1 on 01/03/2024 by Alonso Pizano MD at [facility] Right: Knee [employer] 08/14/2028 [id number] / / [id number] Tray Tib 75mm Kn Cocr I Beam Implanted:Qty: 1 on 01/03/2024 by Alonso Pizano MD at [facility] Right: Knee [employer] [id number] / / [id number] Cmpnt Fem Kn Rt Cr Cmnt Prm Vngrd Intlk Implanted:Qty: 1 on 01/03/2024 by Alonso Pizano MD at [facility] Right: Knee [employer] 07/29/2033 [id number] / / [id number] Procedures Procedure Name Priority Date/Time Associated Diagnosis Comments COMPREHENSIVE METABOLIC PANEL STAT 11/30/2023 8:59 AM CDT Preop testing from Last 3 Months or Most Recently Relevant to Health Maintenance Results * (ABNORMAL) COMPREHENSIVE METABOLIC PANEL (11/30/2023 8:59 AM CDT) Glucose 101 70 - 105 mg/dL 11/30/2023 9:33 AM CDT [facility] Sodium 140 136 - 145 mmol/L 11/30/2023 9:33 AM CDT [facility] Potassium 5.1 3.5 - 5.1 mmol/L 11/30/2023 9:33 AM CDT [facility] Chloride 104 98 - 107 mmol/L 11/30/2023 9:33 AM CDT [facility] CO2 30(H) 22 - 29 mmol/L 11/30/2023 9:33 AM CDT [facility] Calcium 10.2 8.4 - 10.4 mg/dL 11/30/2023 9:33 AM CDT [facility] Anion Gap 6 6 - 16 mmol/L 11/30/2023 9:33 AM CDT [facility] BUN 19 7 - 26 mg/dL 11/30/2023 9:33 AM CDT [facility] Creatinine 0.89 0.57 - 1.11 mg/dL 11/30/2023 9:33 AM CDT [facility] Alkaline Phosphatase 88 40 - 150 U/L 11/30/2023 9:33 AM CDT [facility] ALT 17 0 - 55 U/L 11/30/2023 9:33 AM CDT [facility] AST 26 5 - 34 U/L 11/30/2023 9:33 AM CDT [facility] Protein Total 7.0 6.4 - 8.3 gm/dL 11/30/2023 9:33 AM CDT [facility] Albumin 3.8 3.4 - 5.0 gm/dL 11/30/2023 9:33 AM CDT [facility] Bilirubin Total 2.5(H) 0.2 - 1.2 mg/dL 11/30/2023 9:33 AM CDT [facility] eGFR by CKD-EPI 73(L) >=90 mL/min/1.7 3 m2 11/30/2023 9:33 AM CDT [facility] Blood BLOOD SPECIMEN / Unknown Venipuncture / Unknown 11/30/2023 8:59 AM CDT 11/30/2023 9:06 AM CDT Socorro Ricci DO LAB - CHEMISTRY TIESHA NUNES Performing Organization Address [facility]/State/[facility] Co de Phone Number [facility] [address] [place] [address] from Last 3 Months or Most Recently Relevant to Health Maintenance Advance Directives * Full Code (Latest Code Status on File) Date Activated Date Inactivated Comments 01/03/2024 10:40 AM 01/04/2024 7:08 PM * Full Code Date Activated Date Inactivated Comments 08/02/2023 11:42 AM 08/03/2023 3:03 PM Care Teams Federal Law Clerk Relationship Specialty Start Date End Date Keturah Norwood MD [address] [facility] [place] [address] PCP - General Family Medicine 07/04/23 Fernando Scherer DO [address] [facility] [address] [place] [address] Cardiovascular Disease 07/04/23 [place] [address] [phone] Scudding Inspector Cardiovascular Disease 07/24/23
--- OUTSIDE RECORDS SUMMARY | 2024-06-24 12:44 | XMS_ITS | Referral Summary ---
Author Organization [facility] Address [address] [place] [address] Care Team Providers Care Fisher Clam Name Role Phone Keturah Norwood MD Primary Care Provider Laureen Hudson MD Unavailable Encounters Date Type Department Care Team Description 05/09/2024 8:02 AM DIRECTOR OF STRATEGIC SALES - 05/09/2024 11:59 PM DIRECTOR OF STRATEGIC SALES Hospital Encounter [facility] [address] [place] [address] Laureen Hudson MD Cervicalgia (Primary Dx) Discharge Disposition: Discharge to home or self care from Last 3 Months Allergies Active Allergy Reactions Criticality Noted Date Comments Codeine Nausea only,Vomiting Reaction: Nausea, Vomiting, Hydrocodone Itching,Nausea & Vomiting Low 01/17/2022 Penicillins Hives Reaction: Hives, Sulfa (Sulfonamide Antibiotics) Hives Reaction: Hives, Tramadol Itching Low 01/17/2022 Vancomycin Itching Low 04/09/2018 Medications lisinopriL (PRINIVIL,ZEST RIL) 10 mg tablet Take 1 tablet (10 mg total) by mouth daily 2 Active simvastatin (ZOCOR) 40 mg tablet Take 1 tablet (40 mg total) by mouth daily 08/02/200 2 Active cholecalcifero l, vitamin D3, (VITAMIN D3 ORAL) Take 1 tablet/caps ule by mouth daily Active ubidecarenone (CO Q-10 ORAL) Take 1 tablet/caps ule by mouth daily Active acetaminophen (TYLENOL ARTHRITIS PAIN ORAL) Take by mouth as needed Active cetirizine HCl (ZYRTEC ORAL) Take by mouth daily Active celecoxib (CeleBREX) 200 mg capsule Take 1 capsule (200 mg total) by mouth 2 (two) times a day 2 Active HYDROcodone-ac etaminophen (NORCO) 5-325 mg per tabletIndicati ons:Pain Take 1 tablet by mouth every 6 (six) hours as needed for pain 28 tablet 4 Active methocarbamoL (ROBAXIN) 750 mg tablet Take 1 tablet (750 mg total) by mouth 3 (three) times a day 90 tablet [address] (CYMBALTA) 60 mg capsule Take 1 capsule (60 mg total) by mouth daily 90 capsule 1 5 11/24/[address] (CYMBALTA) 60 mg capsule Take 1 capsule (60 mg total) by mouth daily for 15 days 15 capsule 4 05/27/19 25 Discontinued Active Problems Problem Noted Date Diagnosed Date Spondylosis of cervical bryce on without myelopathy or radiculopathy 05/08/2022 BMI 40.0-44.9, adult 01/20/2020 Assessment & Plan (01/20/2020 9:10 AM CDT): Caloric restriction exercise for weight reduction Mixed hyperlipidemia 01/20/2020 Assessment & Plan (01/20/2020 9:11 AM CDT): Continue present medical care and treatment Essential hypertension 01/20/2020 Assessment & Plan (01/20/2020 9:10 AM CDT): Continue present medical care and treatment Chest pain 01/20/2020 Overview (01/20/2020): Abnormal nuclear stress test for possible fixed defect to the anterior and inferior wall with preserved LV ejection fraction Assessment & Plan (01/20/2020 9:10 AM CDT): Recommend cardiac catheterization for exclusion of coronary disease Social History Tobacco Use Types Packs/Day Years Used Date Smoking Tobacco: Never Smokeless Tobacco: Never Tobacco Cessation:Counseling Given: Not Answered Alcohol Use Standard Drinks/Week Comments Yes 0 (1 standard drink = 0.6 oz pur e alcohol) Occasional use of alcohol AUDIT-C Answer Date Recorded Q1: How often do you have a drink containing alcohol? Never 09/26/2022 Q2: How many drinks containi ng alcohol do you have on a typical day when you are drinking? Patient does not drink Q3: How often do you have si x or more drinks on one occasion? Never 09/26/2022 Comments No Sex and Gender Information Value Date Recorded Sex Assigned at Not on file Legal Sex Female 3:09 AM DIRECTOR OF STRATEGIC SALES Gender Identity Not on file Sexual Orientation Not on file Last Filed Vital Signs Vital Sign Reading Time Taken Comments Blood Pressure 193/95 05/09/2024 8:06 AM DIRECTOR OF STRATEGIC SALES Pulse 76 05/09/2024 8:06 AM DIRECTOR OF STRATEGIC SALES Temperature 36.4 ??C (97.5 ??F) 05/09/2024 8:06 AM CS T Respiratory Rate 20 05/09/2024 8:06 AM DIRECTOR OF STRATEGIC SALES Oxygen Saturation 98% 05/09/2024 8:06 AM DIRECTOR OF STRATEGIC SALES Inhaled Oxygen Concentration - - Weight 130.2 kg (287 lb) 01/17/2022 1:30 PM CDT Height 162.6 cm (5' 4 ) 01/17/2022 1:30 PM CDT Body Mass Index 49.26 01/17/2022 1:30 PM CDT Plan of Treatment Not on file Goals Goal Patient Goal Type Associated Problems Recent Progress Patient-Stated? Author [facility] Chronic Pain Care Plan Chronic Care Management On track(2023 8:17 AM DIRECTOR OF STRATEGIC SALES) No Geraldine Renee RN Note: Problem: Chronic Pain Goals: 1. Minimize further functional decline 2. Maximize quality of life 3. Control pain Strategies: - Activity/exercise program recommendation - Conservative stepwise pain medicine strategy with multi-disciplinary approach - Recommend healthy lifestyle strategies and compensatory methods as needed [facility] Fall Prevention Care Plan Chronic Care Management No Alma Alonso, RN Note: Problem: Falls Goals: 1. Maintain strength and balance as able 2. Prevent falls and fractures 3. Maximize safety of living environment Strategies: - Educate on fall prevention and follow-up as needed - Recommend activity/exercise program - Refer to allied health as needed - Recommend healthy lifestyle strategies and compensatory methods as needed Insurance CHOICE PLUS CHOICE PLUS CHOICE PLUS Care Teams Fisher Clam Relationship Specialty Start Date End Date Keturah Norwood MD PCP - General 09/30/21 Laureen Hudson MD Consulting Physician Pain Management 01/17/22
--- OUTSIDE RECORDS SUMMARY | 2024-06-24 12:44 | XMS_ITS | Encounter Summary ---
Author Organization [facility] Address [address] [place] [address] Phone Care Team Providers Care Quenching Machine Operator Name Role Phone Keturah Norwood MD Primary Care Provider Reason for Referral * Radiology Services (Routine) - Closed Specialty Diagnoses / Procedures Referred By Contac lubna Referred To Contact Radiology Diagnoses Pre-op testing Procedures EKG 12 LEAD Toro De La Cruz DPM [address] [place] [address] Phone: tel: fax: Referral ID Status Reason Start Date Expiration Date Visits Re quested Visits Authorized [id number] Closed 11/20/2022 1 1 Encounter Details Date Type Department Care Team (Latest Contact Info) Description 11/20/2022 Transcribe Orders [facility] Preop/Pacu II [address] [place] [address] Toro De La Cruz DPM [address] [place], [place] [id number] Pre-op testing (Primary Dx) Social History Tobacco Use Types Packs/Day Years Used Date Smoking Tobacco: Never Assessed Comments Unknown Sex and Gender Information Value Date Recorded Sex Assigned at Not on file Legal Sex Female 11:34 PM CDT Gender Identity Not on file Sexual Orientation Not on file documented as of this encounter Plan of Treatment Not on file documented as of this encounter Results * EKG 12 LEAD (11/28/2022 12:58 PM CDT) Ventricular Rate 73 BPM EXTERNAL EKG Atrial Rate 73 BPM EXTERNAL EKG P-R Interval 156 ms EXTERNAL EKG QRS Duration 68 ms EXTERNAL EKG Q-T Duration 372 ms EXTERNAL EKG QTC CALCULATION 409 ms EXTERNAL EKG P [place] 41 degrees EXTERNAL EKG R [place] 5 degrees EXTERNAL EKG T [place] 35 degrees EXTERNAL EKG 11/28/2022 12:5 8 PM CDT Impressions EXTERNAL EKG - 11/30/2022 12:27 PM CDT Normal sinus rhythm Normal ECG No previous ECGs available Confirmed by Leroy Younger ([id number]) on 11/30/2022 12:27:53 PM Narrative Procedure Note Leroy Ramsey MD - 11/30/2022 IMPRESSION: Normal sinus rhythm Normal ECG No previous ECGs available Confirmed by Leroy Younger ([id number]) on 11/30/2022 12:27:53 PM Toro De La Cruz DPM IMG ECG ORDERABLES Final Res ult EXTERNAL EKG * BASIC METABOLIC PANEL W/ CALCIUM TOTAL (11/28/2022 12:53 PM CDT) SODIUM 141 136 - 144 mmol/L 11/28/2022 2:07 PM CDT [facility] POTASSIUM 3.8 3.5 - 5.1 mmol/L 11/28/2022 2:07 PM CDT [facility] CHLORIDE 102 100 - 110 mmol/L 11/28/2022 2:07 PM CDT [facility] CO2, VENOUS 25 22 - 30 mmol/L 11/28/2022 2:07 PM CDT [facility] ANION GAP 17.8 8.0 - 20.0 mmol/L 11/28/2022 2:07 PM CDT [facility] GLUCOSE 99 70 - 99 mg/dL 11/28/2022 2:07 PM CDT [facility] BUN 13 10 - 20 mg/dL 11/28/2022 2:07 PM CDT [facility] CREATININE, BLOOD 0.85 0.60 - 1.00 mg/dL 11/28/2022 2:07 PM CDT [facility] BUN/CREATININE RATIO 15 12 - 20 ratio 11/28/2022 2:07 PM CDT [facility] CALCIUM 9.7 8.7 - 10.5 mg/dL 11/28/2022 2:07 PM CDT [facility] IS THE PATIENT REQUIRED TO BE FASTING? No 11/28/2022 2:07 PM CDT [facility] GFR, ESTIMATED >60 >=60 11/28/2022 2:07 PM CDT [facility] Comment: Creatinine Clearance is the preferred criteria for selecting drug dose adjustments in renally impaired patients. ??The GFR is provided as additional pertinent clinical information. GFR is reported in mL/min/1.73 sq m. Calculation based on the Chronic Kidney Disease Epidemiology Collaboration (CKD- EPI) equation refit without adjustment for race. GFR, EST. >60 >=60 023 2:07 PM CDT [facility] GFR, EST. NONAFRICAN >60 >=60 11/28/2022 2:07 PM CDT [facility] Blood Venipuncture / Unknown 11/28/2022 12:53 PM CDT 11/28/2022 1:39 PM CDT us Toro De La Cruz DPJuliana CHEMISTRY ORDERABLES Final R esult [facility] [address] [place] [address] documented in this encounter Visit Diagnoses Diagnosis Pre-op testing- Primary Preoperative examination, unspecified Pre-op testing Preoperative examination, unspecified documented in this encounter Care Teams Quenching Machine Operator Relationship Specialty Start Date End Date Keturah Norwood MD [address] [facility] [place], [place] [id number] PCP - General Family Medicine 11/28/22 documented as of this encounter
--- OUTSIDE RECORDS SUMMARY | 2024-06-24 12:44 | XMS_ITS | Clinical Summary ---
Author Organization [facility] Address [address] [place] [address] Care Team Providers Care Plug Wirer Name Role Phone Keturah Norwood MD Primary Care Provider Fernando Scherer DO Unavailable [phone] Ron Escamilla MD Unavailable [phone] [facility],non-owned Affiliates and Associated Physician Practices is amultiple site organization consisting of ambulatory clinics and hospital sitesin [place], [place], [place] and [place]. This disclosure is being madepursuant to the Care Everywhere program and may not contain all information available regarding this patient. Last updated 18.[facility] Allergies Active Allergy Reactions Criticality Noted Date [...] 02/09/2023 Active Cholecalciferol (Vitamin D) 50 MCG (2000 UT) capsule Take 1 (one) capsule by [...] Plan: Continue present medical care and treatment Encounters Date Type Department Care Team Description 06/10/[address], [facility] [address] [place] [phone] Alonso Pizano MD Refill Request 05/09/2024 9:20 AM FORM GRADER OPERATOR Office Visit [address], [address] [phone] Alonso Pizano MD Presence of right artificial knee joint (Primary Dx) 05/08/[address], [facility] [address] [place] [phone] Alonso Pizano MD Refill Request from Last 3 Months Social History Tobacco Use Types Packs/Day Years [...] Mass Index 48.71 01/03/2024 6:41 AM CDT Plan of Treatment Upcoming Encounters Date Type Department Care Team (Late st Contact Info) Description 11/28/2024 11:00 AM CDT Office Visit [facility] [id number] [place] [address], [address] [address] [place] [id number] [phone] Health Maintenance Due Date Last Done Comments COLOGUARD (AGES 45-75) - COL ON CA SCREENING 1960 COLON MONITORING 1960 COLONOSCOPY - COLON CA SCREENING 1960 CT COLONOGRAPHY - COLON CA SCREENING 1960 Colorectal Cancer Screening 1960 FIT - COLON CA SCREENING 1960 FLEX SIG - COLON CA SCREENING 1960 MAMMOGRAM 1960 PAP SMEAR 1960 HIV SCREENING 1975 HEPATITIS C SCREENING 04/15/1978 DTAP/TDAP/TD VACCINES (1 - Tdap) 1979 PNEUMOCOCCAL VACCINE 50+ (1 of 1 - PCV) 2010 ZOSTER VACCINE (1 of 2) 2010 Respiratory Syncytial Virus (RSV) Vaccine Pt: or over 60 yrs (1 - Risk 60-74 years 1-dose series) 2020 COVID-19 VACCINE (2023-2 5 season) 2024 INFLUENZA VACCINE (#1) 2024 DEPRESSION SCREENING 05/21/2024 09/13/2023 SCREENING FOR DIABETES 11/29/2026 , 07/04/2023 HEPATITIS B VACCINE Aged Out No longe r eligible based on patient's age to complete this topic HIB VACCINE Aged Out No longer eligi ble based on patient's age to complete this topic HPV VACCINE Aged Out No longer eligi ble based on patient's age to complete this topic MENINGOCOCCAL (Group B) VACCINE Aged Out No longer eligible b ased on patient's age to complete this topic MENINGOCOCCAL VACCINE Aged Out No rajesh micheal eligible based on patient's age to complete this topic PNEUMOCOCCAL VACCINE Aged Out No long er eligible based on patient's age to complete this topic Medical Devices Implanted Type Area Chemists Device Identifier Shelf Expiration Date Model / Serial / Lot Cmnt Bone Plc R 40gm Grn Implanted:Qty: 1 on 08/02/2023 by Alonso Pizano MD at [facility] Left: Knee [employer] 12/18/2025 [id number] / / [id number] Tray Tib 75mm Kn Cocr I Beam Implanted:Qty: 1 on 08/02/2023 by Alonso Pizano MD at [facility] Left: Knee [employer] 04/30/2033 [id number] / / [id number] Cmpnt Fem Kn Lt Cr Cmnt Prm Vngrd Intlk Implanted:Qty: 1 on 08/02/2023 by Alonso Pizano MD at [facility] Left: Knee [employer] 06/14/2032 [id number] / / [id number] Cmpnt Ptlr Std 28mm 3 Pg Kn Ser A Implanted:Qty: 1 on 08/02/2023 by Alonso Pizano MD at [facility] Left: Knee [employer] 01/12/2028 [id number] / / [id number] Brng [id number] Vngrd Arcm Kn Ant Stab Implanted:Qty: 1 on 08/02/2023 by Alonso Pizano MD at [facility] Left: Knee [employer] 08/18/2027 [id number] / / [id number] Laureano Brng 97tin22is Vngrd Arcm Kn Ant Stab Implanted:Qty: 1 on 01/03/2024 by Alonso Pizano MD at [facility] Right: Knee [employer] 07/03/2027 [id number] BILL ONLY / / [id number] Cmnt Bone Plc R 40gm Grn Implanted:Qty: 1 on 01/03/2024 by Alonso Pizano MD at [facility] Right: Knee [employer] 05/20/2026 [id number] / / [id number] Cmpnt Ptlr Std 28mm 3 Pg Kn Ser A Implanted:Qty: 1 on 01/03/2024 by Alonso Pizano MD at [facility] Right: Knee [employer] 08/14/2028 [id number] / / [id number] Tray Tib 75mm Kn Cocr I Beam Implanted:Qty: 1 on 01/03/2024 by Alonso Pizano MD at [facility] Right: Knee [employer] [id number] / / [id number] Cmpnt Fem Kn Rt Cr Cmnt Prm Vngrd Intlk Implanted:Qty: 1 on 01/03/2024 by Alonso Pizano MD at [facility] Right: Knee [employer] 07/29/2033 [id number] / / [id number] Procedures Procedure Name Priority Date/Time Associated Diagnosis Comments COMPREHENSIVE METABOLIC PANEL STAT 11/30/2023 8:59 AM CDT Preop testing from Last 3 Months or Most Recently Relevant to Health Maintenance Results * (ABNORMAL) COMPREHENSIVE METABOLIC PANEL (11/30/2023 8:59 AM CDT) [facility] Glucose 101 70 - 105 mg/dL 11/30/2023 9:33 AM CDT [facility] Sodium 140 136 - 145 mmol/L 11/30/2023 9:33 AM CDT [facility] Potassium 5.1 3.5 - 5.1 mmol/L 11/30/2023 9:33 AM CDT [facility] Chloride 104 98 - 107 mmol/L 11/30/2023 9:33 AM CDT [facility] CO2 30(H) 22 - 29 mmol/L 11/30/2023 9:33 AM CDT [facility] Calcium 10.2 8.4 - 10.4 mg/dL 11/30/2023 9:33 AM CDT [facility] Anion Gap 6 6 - 16 mmol/L 11/30/2023 9:33 AM CDT [facility] BUN 19 7 - 26 mg/dL 11/30/2023 9:33 AM CDT [facility] Creatinine 0.89 0.57 - 1.11 mg/dL 11/30/2023 9:33 AM T [facility] Alkaline Phosphatase 88 40 - 150 U/L 11/30/2023 9:33 AM CDT [facility] ALT 17 0 - 55 U/L 11/30/2023 9:33 AM CDT [facility] AST 26 5 - 34 U/L 11/30/2023 9:33 AM CDT [facility] Protein Total 7.0 6.4 - 8.3 gm/dL 11/30/2023 9:33 AM CDT [facility] Albumin 3.8 3.4 - 5.0 gm/dL 11/30/2023 9:33 AM T [facility] Bilirubin Total 2.5(H) 0.2 - 1.2 mg/dL 11/30/2023 9:33 AM T [facility] eGFR by CKD-EPI 73(L) >=90 mL/min/1.7 3 m2 11/30/2023 9:33 AM T [facility] Blood BLOOD SPECIMEN / Unknown Venipuncture / Unknown 11/30/2023 8:59 AM CDT 11/30/2023 9:06 AM T Socorro Ricci DO LAB - CHEMISTRY TIESHA NUNES [facility] [address] [place] [address] from Last 3 Months or Most Recently Relevant to Health Maintenance Advance Directives * Full Code (Latest Code Status on File) Date Activated Date Inactivated Comments 01/03/2024 10:40 AM 01/04/2024 7:08 PM * Full Code Date Activated Date Inactivated Comments 08/02/2023 11:42 AM 08/03/2023 3:03 PM Care Teams Plug Wirer Relationship Specialty Start Date End Date Keturah Norwood MD [address] [place] [address] PCP - General Family Medicine 07/04/23 Fernando Scherer DO [address] [place] [address] Cardiovascular Disease 07/04/23 [place] [address] [place] [id number] Cold Strip Roller Cardiovascular Disease 07/24/23
--- OUTSIDE RECORDS SUMMARY | 2024-06-24 12:44 | XMS_ITS | Clinical Summary ---
Author Organization [facility] Address [address] [place] [address] Care Team Providers Care Entry Level Sales Consultant Name Role Phone Keturah Norwood MD Primary Care Provider Laureen Hudson MD Unavailable [phone] Allergies Active Allergy Reactions Criticality Noted Date [...] tablet (40 mg total) by mouth daily 2 Active cholecalcifero l, vitamin D3, (VITAMIN [...] cardiac catheterization for exclusion of coronary disease Encounters Date Type Department Care Team Description 05/09/2024 8:02 AM LINING PRESSER - 05/09/2024 11:59 PM LINING PRESSER Hospital Encounter [facility] [address] 1[address] [place] [address] Laureen Hudson MD Cervicalgia (Primary Dx) Discharge Disposition: Discharge to home or self care from Last 3 Months Surgical History Surgery Date Site/Laterality Comments MENISCECTOMY Left Knee surgery 2006 CERVICAL FUSION 05/21/2002 - 05/20/2003 REPLACEMENT TOTAL KNEE BILATERAL Bilateral Medical History Medical History Date Comments Hyperlipidemia Hyperlipidemia Hypertension Environmental allergies Chronic neck pain Arthritis Headache History of tibial fracture 07/18/2022 hairl ine fracture of right tibia Family History Medical History Relation Name Comments Stroke Maternal Grandfather Stroke; Heart disease Mother Heart disease; Lung cancer Mother Cancer, lung; Relation Name Status Comments Maternal Grandfather Mother Social History Tobacco Use Types Packs/Day Years [...] on file Legal Sex Female 3:09 AM LINING PRESSER Gender Identity Not on file Sexual Orientation Not on file Obstetrics History Last Filed Vital Signs Vital Sign Reading Time Taken Comments Blood Pressure 193/95 05/09/2024 8:06 AM LINING PRESSER Pulse 76 05/09/2024 8:06 AM LINING PRESSER Temperature 36.4 ??C (97.5 ??F) 05/09/2024 8:06 AM CS T Respiratory Rate 20 05/09/2024 8:06 AM LINING PRESSER Oxygen Saturation 98% 05/09/2024 8:06 AM LINING PRESSER Inhaled Oxygen Concentration - - Weight 130.2 kg (287 lb) 01/17/2022 1:30 PM CDT Height 162.6 cm (5' 4 ) 01/17/2022 1:30 PM CDT Body Mass Index 49.26 01/17/2022 1:30 PM CDT Plan of Treatment Health Maintenance Due Date Last Done Comments Breast Cancer Screening-Mammogram 1960 Cervical Cancer Screening 1960 Colon Cancer Screening-Colonoscopy 1960 Depression Screening 1960 Hepatitis C Screening 1960 DTaP/Tdap/Td Vaccine (1 - Tdap) 1971 Hepatitis B Screening 1978 Regular Well Visit/Exam 18-64 1978 Zoster Vaccine (1 of 2) 2010 Influenza Vaccine (#1) 2024 9, 03/22/2018, 04/04/2016 Pneumococcal vaccine <65 Aged Out No longer eligible based on patient's age to complete this topic Goals Goal Patient Goal Type Associated Problems Recent Progress Patient-Stated? Author [facility] Chronic Pain Care Plan Chronic Care Management On track(2023 8:17 AM LINING PRESSER) No Geraldine Renee RN Note: Problem: Chronic Pain Goals: 1. Minimize further functional decline 2. Maximize quality of life 3. Control pain Strategies: - Activity/exercise program recommendation - Conservative stepwise pain medicine strategy with multi-disciplinary approach - Recommend healthy lifestyle strategies and compensatory methods as needed [facility] Fall Prevention Care Plan Chronic Care Management No Alma Alonso, BELEM Note: Problem: Falls Goals: 1. Maintain strength and balance as able 2. Prevent falls and fractures 3. Maximize safety of living environment Strategies: - Educate on fall prevention and follow-up as needed - Recommend activity/exercise program - Refer to allied health as needed - Recommend healthy lifestyle strategies and compensatory methods as needed Insurance [facility] H[facility]/PPO Address: [facility] [address] [place] [address] [facility]PPO Address: [place] [address] [facility] HMO/PPO Address: [place] [address] Care Teams Entry Level Sales Consultant Relationship Specialty Start Date End Date Keturah Norwood MD PCP - General 09/30/21 Laureen Hudson MD Consulting Physician Pain Management 01/17/22
--- OUTSIDE RECORDS SUMMARY | 2024-06-24 12:44 | XMS_ITS | Clinical Summary ---
Author Organization [facility] Address [address] [place] [address] Phone Care Team Providers Care Career Guidance Technician Name Role Phone Keturah Norwood MD Primary Care Provider Allergies Active Allergy Reactions Criticality Noted Date Comments Penicillins Hives High 11/23/2022 A CHILD PER HER STATEMENT Sulfa Antibiotics Hives High 11/23/2022 Tramadol Itching 11/23/2022 Vancomycin Itching 11/23/2022 Medications celecoxib (CeleBREX) 200 MG Capsule Take 200 mg by mouth 2 times daily. Active atorvastatin (LIPITOR) 40 MG Tablet Take 40 mg by mouth daily. Active lisinopril (PRINIVIL, ZESTRIL) 10 MG Tablet Take 10 mg by mouth daily. Active DULoxetine (CYMBALTA) [address] Particles Take 60 mg by mouth daily. Active methocarbamol (ROBAXIN) 750 MG Tablet Take 750 mg by mouth 3 times daily as needed (NECK PAIN). Active cetirizine (ZyrTEC) 10 MG Tablet Take 10 mg by mouth daily as needed for Allergies or Rhinitis. Active acetaminophen (TYLENOL) 325 MG Tablet Take 325 mg by mouth every 4 hours as needed. Active Active Problems Problem Noted Date Diagnosed Date Torn tendon peroneal brevis left foot 12/06/2022 Family History Medical History Relation Name Comments Heart Disease Father Cancer Mother LUNG Relation Name Status Comments Father Mother Social History Tobacco Use Types Packs/Day Years Used Date Smoking Tobacco: Never Smokeless Tobacco: Never Alcohol Use Standard Drinks/Week Comments Yes 0 (1 standard drink = 0.6 oz pur e alcohol) RARE Sexually Active Control Partners Comments Yes Male Comments Unknown Sex and Gender Information Value Date Recorded Sex Assigned at Not on file Legal Sex Female 11:34 PM CDT Gender Identity Not on file Sexual Orientation Not on file Last Filed Vital Signs Vital Sign Reading Time Taken Comments Blood Pressure 137/81 12/06/2022 10:35 AM CDT Pulse 72 12/06/2022 10:35 AM CDT Temperature 36.3 ??C (97.3 ??F) 12/06/2022 10:35 AM C DT Respiratory Rate 16 12/06/2022 10:35 AM CDT Oxygen Saturation 94% 12/06/2022 10:35 AM CDT Inhaled Oxygen Concentration - - Weight 115.2 kg (254 lb) 12/06/2022 6:06 AM CDT Height 162.6 cm (5' 4 ) 12/06/2022 6:06 AM CDT Body Mass Index 43.6 12/06/2022 6:06 AM CDT Plan of Treatment Health Maintenance Due Date Last Done Comments Hepatitis C Virus (HCV) Screening 1960 TdaP Immunization 1960 Pap Smear 1981 Cervical Cancer Screening (CCS) 1990 HPV/Cotest 1990 Colonoscopy 2005 Colorectal Cancer Screening 2005 Cologuard 2010 Immunochemical Fecal Occult Blood 2010 Mammogram 2010 Pneumococcal Immunization (50+ years) (1 of 1 - PCV) 2010 Zoster Immunization (1 of 2) 2010 Respiratory Syncytial Virus (RSV) Immunization (Adult) (1 - Risk 60-74 years 1-dose series) 2020 Influenza Immunization (#1) 2024 112 09/2021, 03/27/2020, 03/29/2019, Additional history exists SARS-COV-2 Immunization ( season) 2024 05/06/2021, 09/05/2020, 08/15/2020 Hepatitis B Immunization Aged Out No longer eligible based on patient's age to complete this topic Meningococcal Immunization (ACWY) Aged Out No longer eligible based on patient's age to complete this topic Pneumococcal Immunization Combined Aged Out No longer eligible based on patient's age to complete this topic Rotavirus Immunization Aged Out No lo nger eligible based on patient's age to complete this topic Medical Devices Implanted Type Area Baseball Glove Stuffer Device Identifier Shelf Expiration Date Model / Serial / Lot Matrix Tiss 23ga Viaflow Human Placental Flowable Premix Ambient Temperature Ndl c - [id number] Implanted:Qty: 1 on 12/06/2022 by Toro De La Cruz DPM at [facility] IMPLANT Left: Foot [employer] 09/26/2026 [id number] / [id number] / [id number] Insurance Care Teams Career Guidance Technician Relationship Specialty Start Date End Date Keturah Norwood MD [address] [facility] [address] [place] [address] PCP - General Family Medicine 11/28/22
[2024-06-24 16:52] LABS: Basophils Percent Auto 0.6 % (0.2-1.2); Eosinophils Absolute Auto 0.1 K/mm3 (0-0.3); Eosinophils Percent Auto 2.1 % (0-4.4); Hematocrit 43.8 % (37.0-47.0); Hemoglobin 14.5 g/dL (12.0-15.0); Immature Granulocyte Absolute 0.01 K/mm3 (0.00-0.031); Immature Granulocyte Percent A 0.2 % (0-0.5); Lymphocytes Percent Auto 26.9 % (18.3-44.2); Mean Corpuscular HGB Conc 33.1 g/dl (32-36); Mean Corpuscular Volume 93.6 fl (80-100); Mean Platelet Volume 10.6 fl (7.4-10.4); Monocytes Absolute Auto 0.4 K/mm3 (0.1-0.6); Monocytes Percent Auto 7.3 % (2.6-8.5); Neutrophils Absolute Auto 3.3 K/mm3 (1.3-6.7); Neutrophils Percent Auto 62.9 % (45.5-73.1); Platelet Count Result 201 k/mm3 (150-375); Red Blood Count 4.68 M/mm3 (4.2-5.4); Red Cell Distribution Width 13.2 % (11.5-14.5); White Blood Count 5.2 K/mm3 (4.5-10.0)
[2024-06-24 18:35] LABS: Alanine Aminotransferase 19 U/L (6-35); Alkaline Phosphatase 111 U/L (38-126); Anion Gap 9 mmol/L (4-12); Aspartate Amino Transferase 32 U/L (14-36); Bilirubin,Total 1.7 mg/dL (0.2-1.3); Blood Urea Nitrogen 16 mg/dL (7-17); Calcium 9.6 mg/dL (8.4-10.2); Carbon Dioxide 30 mmol/L (22-30); Chloride 103 mmol/L (98-107); Cholesterol 233 mg/dL (0-200); Estimated Glomerular Filt Rate > 60; Glucose 92 mg/dL (65-110); HDL Direct 58 mg/dL; Potassium 4.5 mmol/L (3.4-5.0); Sodium 142 mmol/L (137-145); Triglycerides 175 mg/dL (<150)
[2024-06-24 18:48] LABS: LDL Cholesterol Direct 124 mg/dL
[2024-06-24 18:53] LABS: Vitamin D 25 Hydroxy 35.7 ng/mL
== END 2024-06-24 12:40 | disposition home or self-care (01) ==
LOC: ANHGOSHLAB 12:40
PROVIDERS: PCP Family Medicine; Visit Provider Nurse Practitioner Family
DX: E78.5 Hyperlipidemia, unspecified (principal); I10 Essential (primary) hypertension; E55.9 Vitamin D deficiency, unspecified
CPT/HCPCS: 36415; 80053; 80061; 82306; 84443; 85025

== ENCOUNTER 2024-07-21 11:49 | Emergency (ER) | payer OTHER, SELFPAY ==
[2024-07-21 11:53] VITALS: BP 150/67; PULSE 78; RESP 20; TEMP 36.8; O2SAT 98
--- NOTE | 2024-07-21 12:21 | ED.URI ---
HPI - URI/Sore Throat General Chief Complaint: Upper Respiratory Infection Stated Complaint: cough/fever Source: patient and RN notes reviewed Mode of arrival: ambulatory Limitations: no limitations History of Present Illness HPI Narrative: 64-year-old female presented for complaint of cough for 4 days. Started with fever and fatigue the following day, and endorses mild right ear pain. Cough is productive of green sputum. Denies nausea, vomiting, diarrhea or shortness of breath. Taking Tylenol cold and flu medicine. MD elicited complaint: cough Related Data Home Medications ?Medication ?Instructions ?Recorded ?Confirmed ?Last Taken ?Type celecoxib 200 mg capsule 200 mg PO BID 09/15/21 06/24/24 Unknown History duloxetine 60 mg capsule,delayed 60 mg PO DAILY 08/18/22 06/24/24 Unknown History release methocarbamol 750 mg tablet 750 mg PO DAILY 08/18/22 06/24/24 Unknown History Allergies Allergy/AdvReac Type Severity Reaction Status Date / Time amoxicillin Allergy Unknown Unknown Verified 07/21/24 11:58 codeine Allergy Unknown Unknown Verified 07/21/24 11:58 Penicillins Allergy Unknown Unknown Verified 07/21/24 11:58 Sulfa (Sulfonamide Allergy Unknown Unknown Verified 07/21/24 11:58 Antibiotics) tetanus and diphtheria Allergy Unknown Unknown Verified 07/21/24 11:58 toxoids vancomycin Allergy Unknown Unknown Verified 07/21/24 11:58 tramadol Allergy Itching Verified 07/21/24 11:58 potassium AdvReac unkknown Verified 07/21/24 11:58 Review of Systems Review of Systems: as per HPI [facility] Past Medical History Medical History Back pain with history of spinal surgery Umbilical hernia Essential (primary) hypertension (~1997) Hyperlipidemia, unspecified (~1997) Surgical History Surgical History H/O total knee replacement (~2023) Left Knee H/O total knee replacement (~2023) Right Knee H/O lateral meniscus repair of left knee (~2006) Status post cervical spinal fusion (~2003) Family History Family History Sibling Family history of thyroid disease Hypertension Grandparent Diabetes mellitus Hypertension Mother Hypertension Family history of lung cancer Father Rheumatic aortic disease Social History Social History Smoking status: Never smoker Second hand tobacco smoke exposure: No Alcohol intake: current Alcohol use details: Pt drinks wine/mixed drinks. She states that she drinks occasionally/socially Substance use: never Lack of Transportation: No Lack of Food: Never True Current Housing: I Have Housing Concerned About Future Housing: No Difficulty Paying Gas/Electric Bills: No Difficulty Paying for Meds: No Currently Unemployed: No Education: Associate Degree Difficulty w/ Childcare or Family Care: No Occupation/Education: occupation Additional occupation/education comments: [email or web address] Gender identity (if verbalized by the patient): Female Exam Narrative: GENERAL: mildly Ill-appearing, nontoxic EYES: PERRLA, conjunctivae clear ENT: Mucous membranes moist. Left TM pearly lacy with dull light reflex; right TM erythematous, bulging and intact; canal not erythematous, no drainage no tragal tenderness. Oropharynx erythematous without lesions or exudate, no drooling, no hoarseness, no trismus, uvula midline. No tripod positioning, muffled voice, soft palate or pharyngeal wall bulging NECK: Supple. No lymphadenopathy CHEST: Clear to auscultation, breath sounds equal. No wheezing, rhonchi, rales, or stridor. No respiratory distress, speaks in full sentences. HEART: Regular rate and rhythm. No murmur heard. SKIN: Warm, dry, no rash. NEURO: Alert and oriented x3. PSYCH: Normal mood and affect Course Course Emergency Course: Patient is aware of diagnosis, understands and agrees to treatment plan. Anticipatory guidance given. Patient agrees to follow-up as directed and is aware of reasons to seek care at the emergency department. Portions of this record may have been created with voice recognition software Level of Care: Express Care Visit Vital Signs Vital signs: Vital Signs Temperature 98.3 F 07/21/24 11:53 Pulse Rate 78 07/21/24 11:53 Respiratory Rate 20 07/21/24 11:53 Blood Pressure 150/67 H 07/21/24 11:53 Pulse Oximetry 98 07/21/24 11:53 Oxygen Delivery Room Air 07/21/24 11:53 Temperature 98.3 F 07/21/24 11:53 Pulse Rate 78 07/21/24 11:53 Respiratory Rate 20 07/21/24 11:53 Blood Pressure 150/67 H 07/21/24 11:53 Pulse Oximetry 98 07/21/24 11:53 Oxygen Delivery Room Air 07/21/24 11:53 reviewed MDM - URI/Sore Throat MDM Narrative Medical decision making narrative: positive flu, right AOM. Discussed physical exam findings. Advised supportive measures and signs/symptoms to go to the ER. Pt is appropriate for outpt treatment and f/u. Differential Diagnosis Differential diagnosis: Likely upper respiratory infection, otitis media, sinusitis, viral infection, bronchitis and influenza Discharge Plan Discharge Clinical Impression: Influenza Otitis media Qualifiers: Otitis media type: suppurative Chronicity: acute Laterality: right Recurrence: non-recurrent Spontaneous tympanic membrane rupture: without spontaneous rupture Qualified Code(s): H66.001 - Acute suppurative otitis media without spontaneous rupture of ear drum, right ear Patient Disposition: Home, Self-Care Condition: Stable Instructions: Antibiotic Form, Influenza (ED) Additional Instructions: Influenza positive You should avoid crowds until you are fever free for 24 hours without the use of fever reducing medications, or the symptoms are improved Rest. Drink plenty of fluids. Tylenol 1000mg every 8 hours as needed for pain/fever Flonase spray and Zyrtec (or Claritin/Elise) for sinus pressure/congestion over the counter Cough syrup may cause drowsiness; avoid driving or take it at night time. take antibiotic as directed for right ear infection Follow up with your primary care provider as needed Go to the ER for worsening symptoms or concerns Patient Language: [place] Prescriptions: New doxycycline hyclate 100 mg tablet 100 mg PO BID 7 Days Qty: 14 0RF No Action duloxetine 60 mg capsule,delayed release(DR/EC) 60 mg PO DAILY methocarbamol 750 mg tablet 750 mg PO DAILY celecoxib 200 mg capsule 200 mg PO BID atorvastatin 40 mg tablet 40 mg PO DAILY Qty: 90 1RF lisinopril 10 mg tablet 10 mg PO DAILY Qty: 90 1RF Follow-up/Referrals: Josh Norwood MD [Primary Care Provider] - Stand Alone Forms: Work/School Release IP Time of Disposition: 12:28
[2024-07-21 12:23] LABS: EDINFLUASCREEN Positive (Negative); EDINFLUBSCREEN Negative (Negative)
== END 2024-07-21 12:32 | disposition home or self-care (01) ==
PROVIDERS: Emergency Provider Nurse Practitioner Family; PCP Family Medicine
DX: J10.1 Influenza due to other identified influenza virus with other respiratory manifestations (principal); H66.001 Acute suppurative otitis media without spontaneous rupture of ear drum, right ear; I10 Essential (primary) hypertension; E78.5 Hyperlipidemia, unspecified; Z96.653 Presence of artificial knee joint, bilateral
CPT/HCPCS: 87804; 99213; G0463

== ENCOUNTER 2024-11-28 12:53 | Outpatient (CLI) | payer OTHER, SELFPAY ==
--- NOTE | ~2024-11-28 | US_ITS ---
EXAMINATION: US soft tissue head and neck DATE: 11/28/2024 13:14 INDICATION: Localized enlarged lymph nodes TECHNIQUE: Multiple grayscale and Doppler ultrasound images of the left neck region of concern near t he angle of mandible were obtained. COMPARISON: None FINDINGS: There are couple hypoechoic nodules which abut but appears separate from the parotid gland. These jimmy sure 1.7 x 1.2 x 1.5 cm and the more anterior and caudal measures 2.1 x 1.0 x 1.5 cm. The more caudal demonstrates a vascular central hilum on color Doppler suggesting a lymph node. IMPRESSION: 1. Probable 2.1 cm and 1.7 cm nodules at the region of concern which appear to represent nonspecific mildly enlarged lymph nodes which could be either reactive or metastatic. Differential would also inc lude primary parotid neoplasm which could be either benign or malignant. Consider ultrasound-guided b iopsy. Reviewed, dictated and finalized at location A. IMPRESSION: 1. Probable 2.1 cm and 1.7 cm nodules at the region of concern which appear to represent nonspecific mildly enlarged lymph nodes which could be either reactiv e or metastatic. Differential would also include primary parotid neoplasm which could be either benign or malignant. Consider ultrasound-guided biopsy.
== END 2024-11-28 12:54 | disposition home or self-care (01) ==
PROVIDERS: PCP Family Medicine; Visit Provider Nurse Practitioner Family
DX: R59.0 Localized enlarged lymph nodes (principal)
CPT/HCPCS: 76536

== ENCOUNTER 2024-12-17 11:54 | Outpatient (CLI) | payer OTHER, SELFPAY ==
--- NOTE | ~2024-12-17 | CT_ITS ---
CT scan of the Neck Technique: 2.5 mm axial scans were obtained through the neck after intravenous administration of 75 c c Omnipaque 350. Coronal and sagittal reconstructions of the neck were obtained. Dose reduction techn ique was used on this scan by utilizing automated exposure control and iterative reconstruction techn ique. The dose-length product (DLP) was 405.13 mGy-cm. Clinical History: Enlarged lymph nodes Findings: There is no evidence of any significant cervical lymphadenopathy. Several small, nonenlarged jugulo- digastric and posterior cervical lymph nodes are noted bilaterally. Parapharyngeal spaces appear norm al bilaterally. There is a 1.5 cm circumscribed mass just anterior to the left upper quadrant mesente ry muscle, possibly within the superficial portion of left parotid gland (axial image 48). There is a n additional mildly enlarged oval lymph node just anteromedial to the left sternocleidomastoid muscle , measuring 1.5 x 1.2 cm (axial image 55).. The pharyngeal mucosal spaces appear normal. No soft tissue masses are seen in the neck. The thyroid gland appears normal. Images of the lung apices reveal no abnormalities. There is left ma xillary sinus disease. Remaining paranasal sinuses are clear. There is anterior cervical fusion from C5 to C7. Impression: 1.5 cm mass versus lymph node just anterior to the left sternocleidomastoid muscle, possibly within t he superficial left parotid gland. Additional mildly enlarged 1.5 x 1.2 cm lymph node at the left lev el 2 region, as detailed above. These lesions are indeterminate. MR imaging can be performed, but may not narrow the differential diagnosis. Consider ultrasound-guided tissue sampling as indicated. Reviewed, dictated and finalized at [facility]. Impression: 1.5 cm mass versus lymph node just anterior to the left sternocleidomastoid mus isaiah, possibly within the superficial left parotid gland. Additional mildly enla rged 1.5 x 1.2 cm lymph node at the left level 2 region, as detailed above. The se lesions are indeterminate. MR imaging can be performed, but may not narrow t he differential diagnosis. Consider ultrasound-guided tissue sampling as indica marquise.
[2024-12-17 12:12] LABS: Estimated Glomerular Filt Rate 50
== END 2024-12-17 11:55 | disposition home or self-care (01) ==
PROVIDERS: PCP Family Medicine; Visit Provider Family Medicine
DX: R59.0 Localized enlarged lymph nodes (principal)
CPT/HCPCS: 70491; Q9967